=== PATIENT | female | born 1990 | race Caucasian/White ===

== ENCOUNTER 2017-05-08 23:09 | Emergency (ER) | payer MEDICAID ==
[~2017-05-08] VITALS: Ht 152.4 cm; Wt 72.7 kg
[~2017-05-08 23:09] MED LIST: AMOX500C2 PO; [UNRECOGNIZED DRUG - CODE] AU
[2017-05-08 23:11] VITALS: BP 137/98
[2017-05-08 23:58] LABS: HCG,QUAL RESULT NEGATIVE (NEGATIVE)
[2017-05-09 00:03] LABS: AMPHET/METH SCREEN,URINE NEGATIVE (NEGATIVE); BARBITURATE SCREEN, URINE NEGATIVE (NEGATIVE); BENZODIAZEPINES SCREEN,URINE NEGATIVE (NEGATIVE); CANNABINOID SCREEN,URINE NEGATIVE (NEGATIVE); COCAINE SCREEN,URINE NEGATIVE (NEGATIVE); METHADONE SCREEN, URINE NEGATIVE (NEGATIVE); OPIATE SCREEN,URINE NEGATIVE (NEGATIVE); PHENCYCLIDINE SCREEN,URINE NEGATIVE (NEGATIVE)
== END 2017-05-09 01:00 | disposition left against medical advice (07) ==
LOC: EMS 23:10
DX: M54.6 Pain in thoracic spine (principal); R07.9 Chest pain, unspecified; Z53.21 Procedure and treatment not carried out due to patient leaving prior to being seen by health care provider
CPT/HCPCS: 93005